=== PATIENT | female | born 1965 | race African-American/Black ===

== ENCOUNTER 2023-03-07 15:32 | Emergency (ER) | payer OTHER ==
[~2023-03-07] VITALS: Ht 167.6 cm; Wt 91.0 kg
[2023-03-07 15:53] VITALS: BP 146/89; PULSE 99; RESP 16; O2SAT 100
[2023-03-07] MEDS ORDERED: ACET-2708 MT (16:07)
[2023-03-07 16:15] VITALS: TEMP 98.7
[2023-03-07] MEDS ORDERED: ACETAMINOPHEN 500MG TABLET PO ONE (16:15)
== END 2023-03-07 16:45 | disposition home or self-care (01) ==
LOC: ER 15:32
DX: S00.83XA Contusion of other part of head, initial encounter (principal); I10 Essential (primary) hypertension; X58.XXXA Exposure to other specified factors, initial encounter; Y93.89 Activity, other specified; Y92.89 Other specified places as the place of occurrence of the external cause; Y99.8 Other external cause status
CPT/HCPCS: 99282